=== PATIENT | male | born 1935 | race Caucasian/White ===

== ENCOUNTER → 2017-08-09 | Outpatient (CLI) | payer MEDICARE, OTHER, SELFPAY | PROVIDERS: Family Provider Family Medicine; PCP Family Medicine; Visit Provider Internal Medicine | DX: L08.9 Local infection of the skin and subcutaneous tissue, unspecified (principal); C44.42 Squamous cell carcinoma of skin of scalp and neck; T81.31XD Disruption of external operation (surgical) wound, not elsewhere classified, subsequent encounter; S01.00XD Unspecified open wound of scalp, subsequent encounter | CPT/HCPCS: 11042; 87070; 87075; 87077; 87186; 87205; 99213 ==

== ENCOUNTER → 2017-09-06 10:35 | Outpatient (CLI) | payer MEDICARE, OTHER, SELFPAY | PROVIDERS: Family Provider Family Medicine; PCP Family Medicine; Visit Provider Internal Medicine | DX: S01.00XD Unspecified open wound of scalp, subsequent encounter (principal); T81.31XD Disruption of external operation (surgical) wound, not elsewhere classified, subsequent encounter | CPT/HCPCS: 87070; 87075; 87077; 87186; 87205; 99212 ==

== ENCOUNTER → 2017-09-13 08:56 | Outpatient (CLI) | payer MEDICARE, OTHER, SELFPAY | PROVIDERS: Family Provider Family Medicine; PCP Family Medicine; Visit Provider Internal Medicine | DX: S01.00XD Unspecified open wound of scalp, subsequent encounter (principal); T81.31XD Disruption of external operation (surgical) wound, not elsewhere classified, subsequent encounter | CPT/HCPCS: 99212 ==

== ENCOUNTER → 2017-09-27 09:44 | Outpatient (CLI) | payer MEDICARE, OTHER, SELFPAY | PROVIDERS: Family Provider Family Medicine; PCP Family Medicine; Visit Provider Internal Medicine | DX: S01.00XD Unspecified open wound of scalp, subsequent encounter (principal); T81.31XD Disruption of external operation (surgical) wound, not elsewhere classified, subsequent encounter | CPT/HCPCS: 99211 ==